=== PATIENT | male | born 1995 | race Caucasian/White ===

== ENCOUNTER 2024-11-14 19:56 | Emergency (ER) | payer OTHER ==
[~2024-11-14] VITALS: Ht 177.8 cm; Wt 97.5 kg
[2024-11-14] MEDS ORDERED: ONDA4TAB5 PO (21:21)
[2024-11-14] MEDS ORDERED: ACET325C7 PO (21:21)
[2024-11-14] MEDS ORDERED: ONDANSETRON 4 MG TAB.RAPDIS ONE (21:23)
[2024-11-14] MEDS: ONDANSETRON 4 MG TAB.RAPDIS PO ONE (21:27)
[2024-11-14 21:30] VITALS: BP 115/75; TEMP 98.9; O2SAT 100
== END 2024-11-14 21:30 | disposition home or self-care (01) ==
LOC: ER 20:05
DX: S06.0XAA Concussion with loss of consciousness status unknown, initial encounter (principal); R11.0 Nausea; F17.200 Nicotine dependence, unspecified, uncomplicated; J45.909 Unspecified asthma, uncomplicated; V00.131A Fall from skateboard, initial encounter; Y93.89 Activity, other specified; Y92.89 Other specified places as the place of occurrence of the external cause; Y99.9 Unspecified external cause status
CPT/HCPCS: 99283; Q0162